=== PATIENT | female | born 1970 | race Two or more races ===

== ENCOUNTER 2017-10-09 00:24 | Emergency (ER) | payer OTHER ==
[2017-10-09] MEDS ORDERED: DEXAMETHASONE 10 MG/ML VIAL IVP ONE (00:45)
[2017-10-09] MEDS ORDERED: NS 1,000 ML IV ONE (00:46)
[2017-10-09] MEDS ORDERED: METOCLOPRAMIDE 10 MG/2 ML VIAL IVP ONE (00:47)
[2017-10-09] MEDS ORDERED: KETOROLAC 30 MG/1 ML SDV IVP ONE (00:47)
--- NOTE | 2017-10-09 01:32 | EDPHY ---
H & P Stated Complaint: migraine Time Seen by Provider: 10/09/17 00:58 HPI/ROS: HPI The patient presents with migraine headache which has been present since about 10:30 p.m. 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 She thinks a strong fish odor induced her headache. The headache is left-sided, throbbing in nature, radiates throughout her head. It feels like her typical migraine. She did not have any Aleve with her at work so she comes into the emergency department. She is experiencing nausea without any vomiting. The headache came on slowly. She does not have any changes in her vision though does feel photophobia. Her migraine trigger is usually a smell of bleach.. REVIEW OF SYSTEMS Constitutional: No fever, no chills. Eyes: No discharge. ENT: No sore throat. Cardiovascular: No chest pain, no palpitations. Respiratory: No cough, no shortness of breath. Gastrointestinal: No abdominal pain, no vomiting. Genitourinary: No hematuria. Musculoskeletal: No back pain. Skin: No rashes. Neurological: Positive for headache. 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 PHYSICAL General Appearance: Alert, no distress Eyes: Pupils equal and round no pallor or injection ENT, Mouth: Mucous membranes moist Respiratory: There are no retractions, lungs are clear to auscultation Cardiovascular: Regular rate and rhythm Gastrointestinal: Abdomen is soft and non-tender, no masses, bowel sounds normal Neurological: A&O x3, cranial nerves 2-12 intact, 5/5 strength in upper and lower extremities which is symmetric, normal finger to nose testing Skin: Warm and dry, no rashes Musculoskeletal: Neck is supple non tender Extremities: symmetrical, full range of motion Psychiatric: Patient is oriented X 3, there is no agitation Source: Patient Exam Limitations: No limitations - Personal History LMP (Females 10-55): Hysterectomy Current Tetanus Diphtheria and Acellular Pertussis (TDAP): Unsure - Medical/Surgical History Hx Asthma: No Hx Chronic Respiratory Disease: No Hx Diabetes: No Hx Cardiac Disease: No Hx Renal Disease: No Hx Cirrhosis: No Hx HIV/AIDS: No Hx Splenectomy or Spleen Trauma: No Other PMH: insulin resistant - Social History Smoking Status: Never smoked Constitutional: Initial Vital Signs Temperature (C) 36.6 C 10/09/17 00:28 Heart Rate 86 10/09/17 00:28 Respiratory Rate 20 10/09/17 00:28 Blood Pressure 139/91 H 10/09/17 00:28 O2 Sat (%) 99 10/09/17 00:28 O2 Delivery Mode Room Air Allergies/Adverse Reactions: No Known Allergies Allergy (Unverified 10/09/17 00:27) Home Medications: Medication Instructions Recorded Metformin HCl 10/09/17 Medical Decision Making Differential Diagnosis: 46-year-old female with history of migraine presents with several hours of gradual onset of unilateral throbbing headache associated with photophobia and nausea, typical of her prior migraines. She has no neurologic deficit on exam. The patient received IV fluids and medication for migraine with complete resolution of her symptoms. She felt much better and asked to be discharged. I advised her to continue taking Aleve as needed for her headaches. Differential diagnosis includes migraine headache, tension type headache, sinusitis. - Data Points Medications Given: Discontinued Medications Dexamethasone (Decadron Injection) 10 mg IVP EDNOW ONE Stop: 10/09/17 00:46 Last Admin: 10/09/17 00:55 Dose: 10 mg Diphenhydramine HCl (Benadryl Injection) 25 mg IVP EDNOW ONE Stop: 10/09/17 00:47 Last Admin: 10/09/17 00:53 Dose: 25 mg Sodium Chloride (Ns) 1,000 mls @ 0 mls/hr IV EDNOW ONE; Wide Open PRN Reason: Protocol Stop: 10/09/17 00:47 Last Admin: 10/09/17 00:55 Dose: 1,000 mls Ketorolac Tromethamine (Toradol) 30 mg IVP EDNOW ONE Stop: 10/09/17 00:48 Last Admin: 10/09/17 00:54 Dose: 30 mg Metoclopramide HCl (Reglan Injection) 10 mg IVP EDNOW ONE Stop: 10/09/17 00:48 Last Admin: 10/09/17 00:55 Dose: 10 mg Departure - Departure Disposition: Home, Routine, Self-Care Clinical Impression: Migraine headache Qualifiers: Migraine type: unspecified Status migrainosus presence: without status migrainosus Intractability: not intractable Qualified Code(s): G43.909 - Migraine, unspecified, not intractable, without status migrainosus Condition: Good Instructions: Migraine Headache (ED) Additional Instructions: Please return to the emergency department if you are worse in any way. I recommend you take Aleve as needed over the next few days if your headache returns. Referrals: [facility] [Other] - As per Instructions
[2017-10-09 01:50] VITALS: BP 119/70
== END 2017-10-09 01:53 | disposition home or self-care (01) ==
DX: G43.909 Migraine, unspecified, not intractable, without status migrainosus (principal); E86.9 Volume depletion, unspecified
CPT/HCPCS: 96374; J1100; J1200; J1885; J2765